=== PATIENT | male | born 2000 | race Caucasian/White ===

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

== ENCOUNTER 2019-01-16 01:22 | Emergency (ER) | payer MEDICAID ==
[2019-01-16] MEDS: KETOROLAC 30 MG INJ IM (02:20)
== END 2019-01-16 02:42 | disposition home or self-care (01) ==
LOC: FTE 01:22
DX: S39.012A Strain of muscle, fascia and tendon of lower back, initial encounter (principal); X50.0XXA Overexertion from strenuous movement or load, initial encounter; Y92.89 Other specified places as the place of occurrence of the external cause
CPT/HCPCS: 96372; 99284-25